=== PATIENT | female | born 1960 | race Caucasian/White ===

== ENCOUNTER 2023-12-05 06:02 | Day surgery (SDC) | payer MEDICARE, BC ==
[2023-12-01 12:33] LABS: BASOPHILS % (AUTO) 0.6 % (0-1); EOSINOPHILS # (AUTO) 0.1 X10'3 (0-0.9); EOSINOPHILS % (AUTO) 1.8 % (0-6); HEMATOCRIT 39.8 % (35.0-45.0); HEMOGLOBIN 13.7 g/dl (12.0-16.0); LYMPHOCYTES # (AUTO) 1.7 X10'3 (1.1-4.8); LYMPHOCYTES % (AUTO) 27.9 % (21-51); MEAN CORPUSCULAR HEMOGLOBIN 31.1 PG (27.0-31.0); MEAN CORPUSCULAR HGB CONC 34.6 g/dL (33.0-36.5); MEAN PLATELET VOLUME 7.3 FL (7.4-10.4); MONOCYTES # (AUTO) 0.7 X10'3 (0-0.9); MONOCYTES % (AUTO) 10.6 % (2-12); NEUTROPHILS # (AUTO) 3.6 X10'3 (1.8-7.7); NEUTROPHILS % (AUTO) 59.1 % (42-75); PLATELET COUNT 272 X10'3 (140-440); RED BLOOD COUNT 4.42 X10'6 (4.20-5.60); RED CELL DISTRIBUTION WIDTH 12.9 % (11.5-14.5); WHITE BLOOD COUNT 6.1 X10'3 (4.5-11.0)
[2023-12-01 12:53] LABS: ALANINE AMINOTRANSFERASE 39 U/L (12-78); ALBUMIN 4.1 G/DL (3.4-5.0); ALBUMIN/GLOBULIN RATIO 1.2 (1.1-1.5); ALKALINE PHOSPHATASE 62 IU/L (46-116); ANION GAP 6 (8-16); ASPARTATE AMINO TRANSFERASE 25 U/L (10-37); BILIRUBIN,TOTAL 0.8 MG/DL (0.1-1.0); BLOOD UREA NITROGEN 12 MG/DL (7-18); BUN/CREATININE RATIO 15.6 (10.0-20.0); CALCIUM 8.4 MG/DL (8.5-10.1); CHLORIDE 100 MMOL/L (99-107); CREATININE 0.77 MG/DL (0.40-0.90); GLUCOSE 92 MG/DL (70-104); SODIUM 137 MMOL/L (135-145); TOTAL CARBON DIOXIDE 30.6 MMOL/L (24-32); TOTAL PROTEIN 7.6 G/DL (6.4-8.2); eGFR 75 ML/MIN
[~2023-12-05] VITALS: Ht 175.3 cm; Wt 57.0 kg
[2023-12-05] VITALS (13 sets, daily range): BP systolic 135–154; BP diastolic 77–88; PULSE 54–67; RESP 11–19; TEMP 97.5; O2SAT 95–98
[2023-12-05] MEDS: cefazolin 2gm/D5W 100mL 100 ML IV ONE (05:30)
[~2023-12-05 06:02] MED LIST: DOCUMENT DATE & TIME OF BETA-BLOCKER PO ONE; famotidine 20mg tablet PO ONE
[2023-12-05] MEDS: ringers solution, lacted 1,000 ML IV SCH (07:19)
[2023-12-05] MEDS ORDERED: LIDOcaine 2% (20mg/ml) 5ml vial ONE (07:21)
[2023-12-05] MEDS ORDERED: LIDOcaine 1% (10mg/ml)w/preservative inj. 20ml MDV ONE (07:22)
[2023-12-05] MEDS ORDERED: BUPIVAcaine/PF 2.5mg/ml (0.25%) 10ml vial ONE ×2 (07:22→09:54)
[2023-12-05] MEDS ORDERED: triamcinolone acetonide 40mg/ml inj ONE (07:22)
[2023-12-05] MEDS ORDERED: LEVO100T (07:24)
[2023-12-05] MEDS ORDERED: MELO-100 PO (07:24)
[2023-12-05] MEDS ORDERED: MONT-40 PO (07:24)
[2023-12-05] MEDS ORDERED: BUPR-564 PO (07:24)
[2023-12-05] MEDS ORDERED: ATOR20TA66 PO (07:24)
[2023-12-05] MEDS ORDERED: morphine 4 MG/ML inj SYRINge IV PRN ×2 (07:50→08:20)
[2023-12-05] MEDS ORDERED: ringers solution, lacted 1,000 ML IV SCH ×2 (07:50→08:20)
[2023-12-05] MEDS ORDERED: meperidine/PF 25mg/ml syringe IV PRN ×6 (07:50→08:20)
[2023-12-05] MEDS ORDERED: enalaprilat dihydrate 2.5mg/2ml vial IV PRN (07:50)
[2023-12-05] MEDS ORDERED: labetalol 20mg/4ml (5mg/ml) syringe IV PRN ×2 (07:50→08:20)
[2023-12-05] MEDS ORDERED: ondansetron/PF 4mg/2ml inj IV PRN ×2 (07:50→08:20)
[2023-12-05] MEDS ORDERED: morphine 2 MG/ML inj. syringe IV PRN ×2 (07:50→08:20)
[2023-12-05] MEDS ORDERED: proCHLORperazine 10 MG/2 ml inj IV PRN ×2 (07:50→08:20)
[2023-12-05] MEDS ORDERED: hydrALAZINE 20mg/ml inj. IV PRN (08:20)
[2023-12-05] MEDS ORDERED: propofol 10mg/ml 20ml vial IV ONE (09:06)
[2023-12-05] MEDS ORDERED: fentaNYL/PF 50MCG/1 ML 2ML syringe ONE (09:10)
[2023-12-05] MEDS: triamcinolone acetonide 40mg/ml inj IJ ONE (09:30)
[2023-12-05] MEDS ORDERED: midazolam 1 mg/ML 2ml injection ONE (10:00)
[2023-12-05] MEDS: ketorolac tromethamine 15mg/ml inj. IV ONE (11:18)
[2023-12-05] MEDS: acetaminophen 1,000mg/100ml IV 100 ML IV ONE (11:19)
[2023-12-05] MEDS: HYDROcodone/acetaminophen 5mg/325mg tablet PO ONE (11:22)
== END 2023-12-05 12:34 | disposition home or self-care (01) ==
LOC: PAS 06:02
PROVIDERS: ATTEND Orthopaedic Surgery Hand Surgery
DX: G56.01 Carpal tunnel syndrome, right upper limb (principal); M18.0 Bilateral primary osteoarthritis of first carpometacarpal joints; Z88.8 Allergy status to other drugs, medicaments and biological substances; Z79.899 Other long term (current) drug therapy; Z98.890 Other specified postprocedural states; Z72.89 Other problems related to lifestyle; Z98.1 Arthrodesis status
CPT/HCPCS: 20600; 25310; 25447; 36415; 64721; 80053; 82948; 85025; 93005; J0131; J0690; J1885; J2250; J2704; J3010; J3301; J3490; J7030; J7120; Z7506; Z7512; A4215; A4618; A7000

== ENCOUNTER 2024-07-16 09:13 | Day surgery (SDC) | payer MEDICARE, BC ==
[2024-07-09 11:13] LABS: BASOPHILS % (AUTO) 0.6 % (0-1); EOSINOPHILS # (AUTO) 0.2 X10'3 (0-0.9); EOSINOPHILS % (AUTO) 3.2 % (0-6); LYMPHOCYTES # (AUTO) 1.6 X10'3 (1.1-4.8); LYMPHOCYTES % (AUTO) 25.9 % (21-51); MEAN CORPUSCULAR HEMOGLOBIN 30.8 PG (27.0-31.0); MEAN CORPUSCULAR HGB CONC 33.5 g/dL (33.0-36.5); MEAN CORPUSCULAR VOLUME 91.8 FL (78-98); MEAN PLATELET VOLUME 7.5 FL (7.4-10.4); MONOCYTES # (AUTO) 0.6 X10'3 (0-0.9); MONOCYTES % (AUTO) 10.6 % (2-12); NEUTROPHILS # (AUTO) 3.6 X10'3 (1.8-7.7); NEUTROPHILS % (AUTO) 59.7 % (42-75); PRE OP HEMATOCRIT 39.1 % (35.0-45.0); PRE OP HEMOGLOBIN 13.1 g/dL (12.0-16.0); PRE OP PLATELET COUNT 248 X10'3 (140-440); PRE OP WHITE BLOOD COUNT 6.1 10'3 (4.8-10.8); RED BLOOD COUNT 4.25 X10'6 (4.20-5.60); RED CELL DISTRIBUTION WIDTH 13.5 % (11.5-14.5)
[2024-07-09 11:24] LABS: ALBUMIN 3.7 G/DL (3.4-5.0); ALBUMIN/GLOBULIN RATIO 1.2 (1.1-1.5); ALKALINE PHOSPHATASE 57 IU/L (46-116); BLOOD UREA NITROGEN 11 MG/DL (7-18); BUN/CREATININE RATIO 16.2 (10.0-20.0); CALCIUM 8.4 MG/DL (8.5-10.1); CHLORIDE 100 MMOL/L (99-107); CREATININE 0.68 MG/DL (0.40-0.90); PRE OP ALT 31 U/L (30-65); PRE OP ANION GAP 7 (8-16); PRE OP AST 26 U/L (10-37); PRE OP BILIRUB, TOTAL 0.8 MG/DL (0.0-1.0); PRE OP GLUCOSE 77 MG/DL (70-104); PRE OP POTASSIUM 4.2 MMOL/L (3.4-5.1); PRE OP SODIUM 136 MMOL/L (135-145); TOTAL CARBON DIOXIDE 29.1 MMOL/L (24-32); TOTAL PROTEIN 6.9 G/DL (6.4-8.2); eGFR 87 ML/MIN
[~2024-07-16] VITALS: Ht 172.7 cm; Wt 59.1 kg
[2024-07-16] MEDS: ceFAZolin 2gm in dextrose, iso 50 ML IV ONE (05:30)
[~2024-07-16 09:13] MED LIST changes: +ATOR20TA66 PO; +BUPIVAcaine 2.5mg/ml inj 50ml vial (contains preservative) ONE; +BUPR-564 PO; -DOCUMENT DATE & TIME OF BETA-BLOCKER PO ONE; +LEVO100T PO; +LIDOcaine 2% (20mg/ml) 5ml vial ONE; +LORA-641 PO; +MELA5CAP PO; +MELO-102 PO; +MONT-40 PO; +SACC250C9 PO; +UBID100C16 PO; -famotidine 20mg tablet PO ONE
[2024-07-16 09:23] VITALS: BP 149/89; PULSE 54; RESP 16; RESP 19; TEMP 97.8; O2SAT 100
[2024-07-16] MEDS: famotidine 20mg tablet PO ONE (09:50)
[2024-07-16] MEDS: ringers solution, lacted 1,000 ML IV SCH (09:51)
[2024-07-16] MEDS ORDERED: morphine 2 MG/ML inj. syringe IV PRN (10:25)
[2024-07-16] MEDS ORDERED: morphine 4 MG/ML inj SYRINge IV PRN (10:25)
[2024-07-16] MEDS ORDERED: proCHLORperazine 10 MG/2 ml inj IV PRN (10:25)
[2024-07-16] MEDS ORDERED: meperidine/PF 25mg/ml syringe IV PRN ×3 (10:25)
[2024-07-16] MEDS ORDERED: ringers solution, lacted 1,000 ML IV SCH (10:25)
[2024-07-16] MEDS ORDERED: ondansetron/PF 4mg/2ml inj IV PRN (10:25)
[2024-07-16] MEDS ORDERED: LIDOcaine 0.5% (5mg/ml) 50ml vial ONE (11:26)
[2024-07-16] MEDS ORDERED: midazolam 1 mg/ML 2ml injection ONE (11:31)
[2024-07-16] MEDS ORDERED: fentaNYL/PF 50MCG/1 ML 2ML syringe ONE (11:31)
[2024-07-16] MEDS: BUPIVAcaine 2.5mg/ml inj 50ml vial (contains preservative) IJ ONE (11:54)
[2024-07-16] MEDS ORDERED: propofol inj 20 ML IV ONE (11:58)
[2024-07-16 12:06] VITALS: BP 141/78; PULSE 65; RESP 14; O2SAT 98
[2024-07-16 12:10] VITALS: BP 142/80; PULSE 58; RESP 18; O2SAT 97
[2024-07-16 12:20] VITALS: BP 140/84; PULSE 60; RESP 13; O2SAT 97
[2024-07-16 12:30] VITALS: BP 157/89; PULSE 63; RESP 11; O2SAT 98
== END 2024-07-16 12:46 | disposition home or self-care (01) ==
LOC: PAS 09:13
PROVIDERS: ATTEND Orthopaedic Surgery Hand Surgery
DX: S63.591A Other specified sprain of right wrist, initial encounter (principal); E89.0 Postprocedural hypothyroidism; E78.5 Hyperlipidemia, unspecified; I48.91 Unspecified atrial fibrillation; Z85.850 Personal history of malignant neoplasm of thyroid; Z79.1 Long term (current) use of non-steroidal anti-inflammatories (NSAID); Z79.2 Long term (current) use of antibiotics; Z79.890 Hormone replacement therapy; Z79.891 Long term (current) use of opiate analgesic; Z79.899 Other long term (current) drug therapy; Z90.49 Acquired absence of other specified parts of digestive tract; Z98.890 Other specified postprocedural states; Z88.8 Allergy status to other drugs, medicaments and biological substances; X58.XXXA Exposure to other specified factors, initial encounter; Y93.89 Activity, other specified; Y92.89 Other specified places as the place of occurrence of the external cause; Y99.8 Other external cause status
CPT/HCPCS: 29846; 36415; 80053; 82948; 85025; 93005; A4215; A4618; A6449; A7000; J0690; J2003; J2250; J2704; J3010; J3490; J7030; J7120; Z7506; Z7512; Z7610

== ENCOUNTER 2025-01-10 15:42 | Outpatient (CLI) | payer MEDICARE, BC ==
[~2025-01-10 15:42] MED LIST changes: -BUPIVAcaine 2.5mg/ml inj 50ml vial (contains preservative) ONE; +BUPR-480 PO; -BUPR-564 PO; -LIDOcaine 2% (20mg/ml) 5ml vial ONE
--- NOTE | 2025-01-11 10:43 | RADIOLOGY REPORT ---
EXAM: MR MRI LOWER EXTREMITY LEFT; DATE: 01/10/2025 04:02 PM HISTORY: PAIN IN LEFT FOOT,METATARSALGIA, LEFT FOOT COMPARISON: None TECHNIQUE: Multiplanar, multisequence MRI was performed. FINDINGS: The visualized osseous structures demonstrate normal cortical and bone marrow signal intensity withou t evidence of fracture, trabecular bony injury, or dislocation. Hallux sesamoid complex is intact. The Lisfranc ligament is intact. The visualized portions of tibialis posterior, flexor hallucis longus, and flexor digitorum tendons a re intact. Visualized portions of peroneus longus and brevis tendons are intact. Visualized portion s of the tibialis anterior, extensor digitorum, and extensor hallucis tendons are intact. The partially visualized plantar fascia is intact. There is no evidence of intermetatarsal bursitis or Wen's neuroma. No significant muscle atrophy is noted. Remainder of the soft tissues are within normal limits. IMPRESSION: 1. No significant osseous or soft tissue abnormality. No evidence of stress fracture.
== END 2025-01-10 23:59 | disposition home or self-care (01) ==
LOC: MRI02 15:42
PROVIDERS: ATTEND Podiatrist Foot & Ankle Surgery
DX: M79.672 Pain in left foot (principal); M77.42 Metatarsalgia, left foot
CPT/HCPCS: 73718